=== PATIENT | female | born 2000 | race Caucasian/White ===

== ENCOUNTER 2022-02-06 15:41 | Observation (INO) | payer BC ==
[~2022-02-06] VITALS: Ht 165.1 cm; Wt 50.0 kg
[2022-02-06 17:16] LABS: COLLECTION METHOD CLEAN CATCH
[2022-02-06 17:29] LABS: BASO % 0.3 % (0.0-2.0); EOS % 0.5 % (0.0-4.0); GRAN # 3.8 K/mm3 (1.4-6.5); GRAN % 63.1 % (42.2-75.2); HEMATOCRIT 37.2 % (35.0-45.0); HEMOGLOBIN 12.6 g/dl (12.0-15.0); LYMPH # 1.9 K/mm3 (1.2-3.4); LYMPH % 31.5 % (20.0-51.0); MEAN CELL VOLUME 87 fl (80.0-95.0); MEAN CORPUSCULAR HEMOGLOBIN 29 pg (26-32); MEAN CORPUSCULAR HGB CONC 34 g/dl (33.0-37.0); MEAN PLATELET VOLUME 11.8 fl (7.4-10.4); MONO # 0.3 K/mm3 (0.1-0.6); MONO % 4.3 % (1.7-9.3); PLATELET COUNT 189 K/mm3 (130-400); REDCELL DISTRIBUTION WIDTH-CV 12.6 % (11.5-14.5)
[2022-02-06 17:38] LABS: PH 6.5 (5.0-8.5); URINE APPEARANCE Clear (CLEAR/HAZY); URINE BLOOD TRACE-INTACT (NEGATIVE); URINE COLOR Yellow (YELLOW); URINE GLUCOSE Negative (NEGATIVE); URINE KETONE Negative (NEGATIVE); URINE NITRATE Negative (NEGATIVE); URINE PROTEIN(semi-quant) Negative (NEGATIVE); URINE UROBILINOGEN 0.2 E.U/dL (0.2-1.0)
[2022-02-06 17:39] LABS: SQUAMOUS EPITHELIAL None Seen /hpf (0-10); URINE BACTERIA None Seen /hpf (NONE SEEN); URINE RBC 0-2 /hpf (0-2)
[2022-02-06 17:50] LABS: ALBUMIN 3.9 gm/dL (3.5-5.0); BILIRUBIN,TOTAL 0.4 mg/dL (0.2-1.2); C-REACTIVE PROTEIN 1.57 mg/dL (0.00-0.50); CALCIUM 9.7 mg/dL (8.4-10.2); CREATININE, serum 0.81 mg/dL (0.57-1.11); POTASSIUM 3.6 mmol/L (3.5-4.5); TOTAL PROTEIN 7.2 gm/dL (6.2-8.1)
[2022-02-06] MEDS ORDERED: NORCO 325 MG-51 TAB PO (20:31)
[2022-02-06] MEDS ORDERED: COLACE 100100 MG/CAP PO (20:31)
[2022-02-06] MEDS ORDERED: MOTRIN 600600 MG/TAB PO (20:31)
[2022-02-06 21:15] VITALS: BP 113/63; PULSE 93; TEMP 97.5
[2022-02-06 21:30] VITALS: BP 125/79; PULSE 90
[2022-02-06 21:45] VITALS: BP 112/56; PULSE 91
--- NOTE | 2022-02-06 22:18 | NUR ---
Patient arrived to the floor at 2109, with 3 lap sites and skin glued, alert and oriented x4, denies pain at this time, will continue to monitor.
[2022-02-06 23:00] VITALS: BP 118/79; PULSE 102; TEMP 98.2
[2022-02-07] VITALS: BP 120/76; PULSE 102; TEMP 98.2
--- NOTE | 2022-02-07 01:28 | NUR ---
Patient discharge at 0034 with family, discharge instructions given, escorted with staff.
== END 2022-02-07 00:34 | disposition home or self-care (01) ==
LOC: COL.ER 15:41 → SURG 18:57 → COL.ER 19:21 → SURG 02-07 00:34
PROVIDERS: Nurse Practitioner; ADMIT Surgery
DX: K35.80 Unspecified acute appendicitis (principal)
CPT/HCPCS: G0378; J0696; J1885; J2405; J7030; Q9967

== ENCOUNTER 2022-02-10 19:48 | Emergency (ER) | payer BC ==
[~2022-02-10] VITALS: Ht 165.1 cm; Wt 50.0 kg
[~2022-02-10 19:48] MED LIST: COLACE 100100 MG/CAP PO; MOTRIN 600600 MG/TAB PO; NORCO 325 MG-51 TAB PO
[2022-02-10 19:58] VITALS: TEMP 98.7
[2022-02-10 21:17] LABS: COLLECTION METHOD CLEAN CATCH
[2022-02-10 21:25] LABS: BASO % 0.6 % (0.0-2.0); EOS # 0.1 K/mm3 (0.0-0.7); EOS % 1.5 % (0.0-4.0); GRAN # 2.7 K/mm3 (1.4-6.5); GRAN % 50.1 % (42.2-75.2); HEMATOCRIT 38.4 % (35.0-45.0); HEMOGLOBIN 13.1 g/dl (12.0-15.0); LYMPH # 2.3 K/mm3 (1.2-3.4); LYMPH % 43.5 % (20.0-51.0); MEAN CELL VOLUME 85 fl (80.0-95.0); MEAN CORPUSCULAR HEMOGLOBIN 29 pg (26-32); MEAN CORPUSCULAR HGB CONC 34 g/dl (33.0-37.0); MEAN PLATELET VOLUME 11.5 fl (7.4-10.4); MONO # 0.2 K/mm3 (0.1-0.6); MONO % 4.1 % (1.7-9.3); PLATELET COUNT 214 K/mm3 (130-400); RED BLOOD COUNT 4.51 M/mm3 (4.10-5.30); REDCELL DISTRIBUTION WIDTH-CV 12.3 % (11.5-14.5)
[2022-02-10 21:42] LABS: ALBUMIN 3.8 gm/dL (3.5-5.0); BILIRUBIN,TOTAL 0.2 mg/dL (0.2-1.2); C-REACTIVE PROTEIN 0.13 mg/dL (0.00-0.50); CALCIUM 9.1 mg/dL (8.4-10.2); CREATININE, serum 0.97 mg/dL (0.57-1.11); POTASSIUM 3.6 mmol/L (3.5-4.5)
[2022-02-10 21:45] LABS: PH 6.5 (5.0-8.5); URINE APPEARANCE Clear (CLEAR/HAZY); URINE BLOOD Negative (NEGATIVE); URINE COLOR Yellow (YELLOW); URINE GLUCOSE Negative (NEGATIVE); URINE KETONE Negative (NEGATIVE); URINE NITRATE Negative (NEGATIVE); URINE PROTEIN(semi-quant) Negative (NEGATIVE); URINE UROBILINOGEN 0.2 E.U/dL (0.2-1.0)
[2022-02-10 21:54] LABS: SQUAMOUS EPITHELIAL None Seen /hpf (0-10); URINE BACTERIA None Seen /hpf (NONE SEEN); URINE RBC 0-2 /hpf (0-2)
[2022-02-10 23:28] VITALS: BP 118/72; PULSE 72
== END 2022-02-10 23:40 | disposition home or self-care (01) ==
LOC: COL.ER 19:48
PROVIDERS: Nurse Practitioner; Personal Emergency Response Attendant
DX: R10.84 Generalized abdominal pain (principal); G89.18 Other acute postprocedural pain; Z90.49 Acquired absence of other specified parts of digestive tract; Z20.822 Contact with and (suspected) exposure to COVID-19; Z28.310 Unvaccinated for COVID-19
CPT/HCPCS: J2270; J7030; Q9967

== ENCOUNTER → 2024-01-20 | Outpatient (CLI) | payer BC | LOC: COL.LAB 16:08 | PROVIDERS: Internal Medicine Gastroenterology | DX: K90.0 Celiac disease (principal) ==